=== PATIENT | male | born 1955 | race Caucasian/White ===

== ENCOUNTER → 2018-04-12 | Outpatient (CLI) | payer OTHER | END | disposition home or self-care (01) | LOC: CVU 06:39 | PROVIDERS: ATTEND Physician Assistant Medical | DX: I70.8 Atherosclerosis of other arteries (principal); I25.2 Old myocardial infarction | CPT/HCPCS: 93922; 93925; 93978 ==

== ENCOUNTER → 2018-06-24 | Outpatient (CLI) | payer OTHER | END | disposition home or self-care (01) | LOC: CFH 15:33 | PROVIDERS: ATTEND Physician Assistant Medical | DX: I08.2 Rheumatic disorders of both aortic and tricuspid valves (principal); I10 Essential (primary) hypertension; I25.10 Atherosclerotic heart disease of native coronary artery without angina pectoris; E78.5 Hyperlipidemia, unspecified; Z95.818 Presence of other cardiac implants and grafts | CPT/HCPCS: 93306 ==